=== PATIENT | male | born 1975 ===

== ENCOUNTER 2024-10-16 07:49 | Day surgery (SDC) | payer OTHER ==
[~2024-10-16] VITALS: Ht 175.3 cm; Wt 94.8 kg
[~2024-10-16 07:49] MED LIST: LEVOTHYROXIN112 MC1 PO; LIPITOR20 M1 PO; MELOXICAM15 MG PO; METFORMIN HCL1000 MG PO; OMEGA 31000 MG PO
[2024-10-16] MEDS ORDERED: FAMOTIDINE 10MG/ML 2ML SDV IV ONE (07:53)
[2024-10-16] MEDS ORDERED: SODIUM CHLORIDE 0.9% 1,000 ML IV ONE (07:53)
[2024-10-16 09:50] VITALS: BP 109/77
[2024-10-16] MEDS ORDERED: LIDOCAINE HCL 2% 2ML SDV IV ONE (10:22)
[2024-10-16] MEDS ORDERED: PROPOFOL 200 MG/20 ML VIAL IV ONE (10:22)
== END 2024-10-16 10:02 | disposition designated cancer center or children's hospital (05) | DRG 395 ==
LOC: ORM 07:49
PROVIDERS: ATTEND Surgery
PROC: 0DBH8ZX Excision of Cecum, Via Natural or Artificial Opening Endoscopic, Diagnostic (ICD-10-PCS; principal; 2024-10-16)
PROC: 0DBN8ZX Excision of Sigmoid Colon, Via Natural or Artificial Opening Endoscopic, Diagnostic (ICD-10-PCS; 2024-10-16)
DX: D12.0 Benign neoplasm of cecum (principal); D12.5 Benign neoplasm of sigmoid colon; K64.8 Other hemorrhoids